=== PATIENT | male | born 1960 | race Hispanic/Latino ===

== ENCOUNTER 2018-07-20 06:21 | Day surgery (SDC) | payer MEDICAID ==
[2018-07-18 14:04] VITALS: BMI 39.9
[2018-07-20] MEDS ORDERED: Propofol 10 mg/ml Inj (20 ML) ONE ×2 (07:48→08:29)
[2018-07-20] MEDS ORDERED: Lidocaine Hydrochloride 5 ML INJ ONE (07:49)
[2018-07-20 09:15] VITALS: TEMP 97.2
[2018-07-20 10:21] VITALS: BP 105/67; PULSE 69; RESP 18; O2SAT 97
== END 2018-07-20 10:15 | disposition home or self-care (01) ==
LOC: C.ENDO 06:21
PROVIDERS: ATTEND Internal Medicine Gastroenterology
DX: Z12.11 Encounter for screening for malignant neoplasm of colon (principal); K57.90 Diverticulosis of intestine, part unspecified, without perforation or abscess without bleeding; D12.7 Benign neoplasm of rectosigmoid junction; D12.3 Benign neoplasm of transverse colon
CPT/HCPCS: 45380; 45385; 88305; J2704